=== PATIENT | female | born 1950 | race Caucasian/White ===

== ENCOUNTER 2016-11-21 13:59 | Emergency (ER) | payer OTHER ==
[~2016-11-21] VITALS: Ht 157.5 cm; Wt 82.6 kg
[~2016-11-21 13:59] MED LIST: /ADVA50050 IN; /MOXI40TA IV; /MOXI40TA OR; ACET65TA PO; ADV250INH INH; ALBU17IN INH; ALBU2TAB INH; ALBUTEROL INH; ALEVE PO; ATROVENT0.02% INH; BP MED PO; BUPR1TAB17 PO; CELE10TA PO; CHLORTHALIDONE; CLAR1TAB2 PO; COLA100C2 OR; COMBIVENT INHALER INH; COMBVENT INH; CYCL10TA PO; DICLOFENAC PR; DRIS50002 PO; FLAG250T OR; FOSA70TA PO; HYDR25TA6 PO; IPRA2IN INH; LISI20TA PO; MULTIVIT PO; NEBUMIS2 INH; PRED50TA PO; SPIR1CAP IN; TRAM50TA2 OR; TRAM50TA2 PO; VICO5TAB OR; [UNRECOGNIZED DRUG - OTHER]; [UNRECOGNIZED DRUG - REMARK] OR
[2016-11-21] MEDS ORDERED: METF500T PO (14:17)
[2016-11-21] MEDS ORDERED: LISI10TA4 PO (14:17)
[2016-11-21 18:03] LABS: ALBUMIN 2.9 GM/DL (3.2-5.2); ALBUMIN/GLOBULIN RATIO 0.52 (1.00-1.93); ALKALINE PHOSPHATASE 100 U/L (45-117); ALT/SGPT 19 U/L (12-78); ANION GAP 6 MEQ/L (8-16); AST/SGOT 8 U/L (15-37); BILIRUBIN,DIRECT < 0.1 MG/DL (0.0-0.2); BILIRUBIN,TOTAL 0.3 MG/DL (0.2-1.0); BLOOD UREA NITROGEN 16 MG/DL (7-18); CALCIUM LEVEL 8.3 MG/DL (8.8-10.2); CARBON DIOXIDE LEVEL 28 MEQ/L (21-32); CHLORIDE LEVEL 105 MEQ/L (98-107); CREATININE FOR GFR 0.88 MG/DL (0.55-1.02); GLOMERULAR FILTRATION RATE > 60.0 (>45); GLUCOSE, FASTING 107 MG/DL (80-110); POTASSIUM SERUM 4.2 MEQ/L (3.5-5.1); SODIUM LEVEL 139 MEQ/L (136-145); TOTAL PROTEIN 8.5 GM/DL (6.4-8.2)
[2016-11-21] MEDS ORDERED: LORazepam 2 MG/ML VIAL (J2060) IV STA (18:23)
[2016-11-21] MEDS ORDERED: CIPR500T89 PO (18:32)
[2016-11-21 18:39] LABS: MAGNESIUM LEVEL 2.5 MG/DL (1.8-2.4)
[2016-11-21 18:59] LABS: BASO # 0.1 K/mm3 (0.0-0.2); BASO % 0.3 % (0.0-1.0); EOS % 0.3 % (0.0-3.0); LARGE UNSTAINED CELL # 0.3 K/mm3 (0.0-0.4); LARGE UNSTAINED CELL % 1.9 % (0.0-4.0); LYMPH # 3.2 K/mm3 (1.5-4.5); LYMPH % 17.1 % (24.0-44.0); MEAN CORPUSCULAR HEMOGLOBIN 29.6 pg (27.0-33.0); MEAN CORPUSCULAR HGB CONC 33.3 g/dl (32.0-36.5); MEAN CORPUSCULAR VOLUME 88.9 fl (80.0-96.0); MONO # 0.9 K/mm3 (0.0-0.8); NEUTROPHILS # 12.8 K/mm3 (1.8-7.7); NEUTROPHILS % 75.4 % (36.0-66.0); PLATELET COUNT, AUTOMATED 512 k/mm3 (150-450); RED CELL DISTRIBUTION WIDTH 13.1 % (11.5-14.5); WHITE BLOOD COUNT 16.9 K/mm3 (4.0-10.0)
[2016-11-21 19:29] LABS: FOLATE 17.1 NG/ML (>5.4)
[2016-11-21 20:42] VITALS: BP 157/92
--- NOTE | 2016-11-22 03:10 | REPUSA ---
Clinical history: Pain, swelling. Findings: The right common femoral, superficial femoral, popliteal, and other deep venous structures compress normally and demonstrate normal color Doppler flow. Normal venous waveforms with augmentatio n are seen. Impression: No evidence of deep vein thrombosis in the right femoral popliteal venous system.
--- NOTE | 2016-11-22 03:10 | REPUSA ---
MRI of the lumbar spine without contrast Clinical statement: Pain down the right leg. Fall. Technique: Multiecho multiplanar MRI images of the lumbar spine were obtained without administration of contrast. No comparison is available. Findings: The lumbar vertebral bodies are in satisfactory position and alignment. No fractures or dis locations are demonstrated. Normal heterogeneous bone marrow signal is noted. No osseous tumors are s een. The intervertebral disc heights are well maintained and demonstrate normal signal. The filum ter minale and conus medullaris appear unremarkable. The spinal cord demonstrates normal signal and conto ur. The surrounding soft tissues are within normal limits. At L2/L3, there is a mild broad disc osteophyte complex and disc bulge. There is no evidence of disc herniation or central canal stenosis. There is moderate bilateral neural foraminal narrowing. At L3/L4, there is a mild disc osteophyte complex and disc bulge. Moderate facet arthropathy is seen bilaterally. This causes borderline central canal stenosis measuring 10 mm in AP diameter. There is moderate bilateral neural foraminal narrowing also appreciated. At L4/L5, there is a broad disc osteophyte complex and disc bulge. There is no evidence of central c anal stenosis or disc herniation. There is moderate bilateral neural foraminal narrowing. Impression: 1. Disc osteophyte complexes and disc bulges at L2/L3, L3/L4, and L4/L5. No evidence of disc herniati on. There is borderline central canal narrowing at L3/L4. 2. Moderate bilateral neural foraminal narrowing at L2/L3,L3/L4, and L4/L5. 3. No acute osseous abnormality appreciated.
== END 2016-11-21 21:00 | disposition home or self-care (01) ==
LOC: M ED 14:52
DX: N39.0 Urinary tract infection, site not specified (principal); M79.604 Pain in right leg; I10 Essential (primary) hypertension; J44.9 Chronic obstructive pulmonary disease, unspecified; G89.29 Other chronic pain; M54.5 Low back pain; Z79.899 Other long term (current) drug therapy; Z91.040 Latex allergy status; F17.210 Nicotine dependence, cigarettes, uncomplicated
CPT/HCPCS: 72148; 80048; 80076; 81001; 82607; 82746; 83735; 85025; 87088; 87186; 93971; 96374; 99283; J2060

== ENCOUNTER → 2016-12-15 | Outpatient (CLI) | payer OTHER ==
[~2016-12-15] MED LIST changes: +CIPR500T89 PO; +LISI10TA4 PO; +METF500T PO
--- NOTE | 2016-12-16 09:00 | REP ---
MR BRAIN WITHOUT CONTRAST: HISTORY: Headache. There are no areas of abnormal signal intensity in the brain. There is no intraparenchymal hemorrhage, infarct, mass or midline shift. The ventricular system and cortical sulci are dilated consistent with minimal volume loss. There is no extracerebral collection. Minimal mucosal thickening is present in the right mastoid air cells. The sinuses are clear. IMPRESSION: Minimal volume loss. Signed by Emre Jimenez MD 12/16/2016 09:18 A
== END ==
LOC: M RAD 15:59
PROVIDERS: ATTEND Family Medicine
DX: R51 Headache (principal)

== ENCOUNTER → 2018-11-13 | Outpatient (REF) | payer OTHER ==
[~2018-11-13] MED LIST changes: -/ADVA50050 IN; -/MOXI40TA IV; -/MOXI40TA OR; +ADVA1AER2 IN; +AVEL1TAB2 IV; +AVEL1TAB2 OR; -BUPR1TAB17 PO; +BUPR1TAB53 PO; +CIPR-249 PO; -CIPR500T89 PO; -DRIS50002 PO; +DRIS50003 PO; -METF500T PO; +METF500T13 PO
[2018-11-13 13:55] LABS: CREATININE FOR GFR 0.68 MG/DL (0.55-1.30); GLOMERULAR FILTRATION RATE > 60.0 (>45)
== END ==
LOC: M LABDRAW1 12:03
PROVIDERS: ATTEND Physical Medicine & Rehabilitation
DX: M48.061 Spinal stenosis, lumbar region without neurogenic claudication (principal)

== ENCOUNTER 2019-08-27 15:27 | Emergency (ER) | payer MEDICARE, MEDICAID ==
[~2019-08-27] VITALS: Ht 157.5 cm; Wt 92.2 kg
[~2019-08-27 15:27] MED LIST changes: -LISI20TA PO; +LISI20TA19 PO
--- NOTE | 2019-08-27 16:36 | REP ---
Right lower extremity deep vein duplex ultrasound: The deep veins demonstrate normal compression, normal Doppler color flow and normal Doppler waveforms with respiration and augmentation from the popliteal vein to the common femoral vein. There is a Valencia's cyst in the popliteal fossa measuring 5.2 x 3.8 x 1.2 cm. Impression: There is no right lower extremity deep vein thrombus. There is a popliteal fossa Valencia's cyst. Electronically Signed by Nazario Ordoñez MD 08/27/2019 04:28 P
[2019-08-27] MEDS ORDERED: ALPR1TAB3 (18:17)
[2019-08-27] MEDS ORDERED: GABA800T4 (18:17)
[2019-08-27] MEDS ORDERED: LIDOCAINE 4% CREAM 5GM (LMX4) TOP ONE (19:00)
[2019-08-27] MEDS ORDERED: IBUPROFEN 600 MG TAB PO ONE (19:00)
--- NOTE | 2019-08-27 20:18 | REP ---
RIGHT KNEE, FIVE VIEWS: Five views right knee performed. No acute fracture or dislocation is seen. There is mild diffuse joint space narrowing and spurring. IMPRESSION: Mild degenerative changes. No fracture or dislocation. Electronically Signed by Nazario Ramos MD 08/28/2019 05:04 P
[2019-08-27] MEDS ORDERED: NAPR-837 PO (20:22)
[2019-08-27] MEDS ORDERED: ANEC4CRE3 TOP (20:22)
[2019-08-27 20:26] VITALS: BP 108/67
== END 2019-08-27 20:33 | disposition home or self-care (01) ==
LOC: M ED 15:27
DX: M71.21 Synovial cyst of popliteal space [Baker], right knee (principal); M25.461 Effusion, right knee; R22.42 Localized swelling, mass and lump, left lower limb; I10 Essential (primary) hypertension; J44.9 Chronic obstructive pulmonary disease, unspecified; Z79.84 Long term (current) use of oral hypoglycemic drugs; Z79.899 Other long term (current) drug therapy; Z91.040 Latex allergy status

== ENCOUNTER → 2021-03-15 | Outpatient (CLI) | payer MEDICAID, MEDICARE ==
[~2021-03-15] MED LIST changes: +ALPR1TAB3; +ANEC4CRE3 TOP; +CYCL-707 PO; -CYCL10TA PO; +D31000TA2 PO; +FAMO20TA PO; +GABA800T4; +LISI10TA22 PO; -LISI10TA4 PO; -LISI20TA19 PO; +LISI20TA35 PO; +NAPR-837 PO; +VENTAER INH
--- NOTE | 2021-03-15 11:37 | PFTRPT ---
Site: [facility], [address] [place], [address] ID: [id number] Name: KADY FRIED Visit Date: 03/15/2021 Second ID: [id number] Referring Doctor: Loren Lucas M.D. Reviewing Doctor: Dontae Flores MD Product Development: Kaleb TEIXEIRA RRT Age: 70 : 1950 Sex: Female Race: Height: 62.00 Inches Weight: 211.00 Lbs BSA: 1.96 Order IDs: [id number] Requested Test(s): <RESP-PFT.PFT B/A> Diagnosis: J44.9 of albuterol for post bronchodilator. Review Status: Not Reviewed Pre-Bronch Post-Bronch Pred Actual %Pred Actual %Chng SPIROMETRY FVC (L) 2.79 2.35 84 2.44 3 FEV1 (L) 2.11 1.86 88 1.94 4 FEV1/FVC (%) 76 79 104 80 FEF 25% (L/sec) 4.55 4.61 101 5.36 16 FEF 50% (L/sec) 3.37 2.37 70 2.94 24 FEF 75% (L/sec) 1.00 0.52 51 0.74 43 FEF 25-75% (L/sec) 1.83 1.70 93 2.12 24 FEF Max (L/sec) 5.42 5.10 94 5.87 14 FIVC (L) 2.38 2.58 8 FIF 50% (L/sec) 3.50 1.62 46 2.16 33 FIF Max (L/sec) 1.98 2.86 44 MVV (L/min) 82 92 112 Expiratory Time (sec) 6.49 7.02 8 Back Extrap Vol (L) 0.09 0.09 Time To FEFmax (sec) 0.094 0.084 -10 LUNG VOLUMES SVC (L) 2.68 3.07 114 IC (L) 2.05 2.08 101 ERV (L) 0.63 0.99 157 TGV (L) 2.70 2.48 91 RV (Pleth) (L) 2.07 1.49 71 TLC (Pleth) (L) 4.75 4.56 96 RV/TLC (Pleth) (%) 43 33 75 DIFFUSION DLCOunc (ml/min/mmHg) 19.81 18.57 93 DL/VA (ml/min/mmHg/L) 4.17 4.63 111 VA (L) 4.75 4.01 84 BHT (sec) 10.64 IVC (L) 2.51 TLC (SB) (L) 4.16 AIRWAYS RESISTANCE Raw (cmH2O/L/s) 1.86 1.51 81 Gaw (L/s/cmH2O) 1.03 0.66 64 sRaw (cmH2O*s) 4.76 3.93 82 sGaw (1/cmH2O*s) 0.20 0.25 127
== END ==
LOC: M CARPUL 10:58
PROVIDERS: ATTEND Pediatrics
DX: J44.9 Chronic obstructive pulmonary disease, unspecified (principal)

== ENCOUNTER → 2021-03-22 | Outpatient (CLI) | payer MEDICARE | LOC: M LABSMTC 10:41 | PROVIDERS: ATTEND Anesthesiology | DX: Z01.812 Encounter for preprocedural laboratory examination (principal); Z20.822 Contact with and (suspected) exposure to COVID-19 ==

== ENCOUNTER → 2021-04-08 | Outpatient (CLI) | payer MEDICARE ==
--- NOTE | 2021-04-08 09:18 | REPMRS ---
Patient History Patient is postmenopausal. The patient states she has not had a clinical breast exam in over a year. 40 lb unintentional weight gain. Patient states no breast complaints today. Patient has signed MRS History Sheet. Digital Woman Screen Mammo: April 08, 2021 - Exam #: [id number] Bilateral CC and MLO view(s) were taken. Technologist: RT María Elena Prior study comparison: December 10, 2012, bilateral bilat screen digital mammo, performed at [facility] ([facility]). FINDINGS: There are scattered fibroglandular densities. Screening. Digital screening (2D) mammography was performed bilaterally in the CC and MLO projections. Additionally, breast tomosynthesis (3D mammography) was performed bilaterally in the CC and MLO projections. Todays exam was compared to the prior exam/exams. By history, the patient has no complaints of a palpable breast abnormality or other significant breast complaints. The breasts are unchanged in size and shape. There are no miroslava-soft tissue densities or spiculated masses. There is no internal architectural distortion. There are no suspicious miroslava-calcific clusters. Skin thickening or nipple retraction is not present. IMPRESSION: BI-RADS Category 2- Benign Findings. There is no evidence of malignant alteration of the breasts. Followup examination recommended in one year. The Volpara volumetric breast density category is B, there are scattered areas of fibroglandular densities. This mammogram was read with the assistance of [employer],an FDA approved computer aided detection system for mammography. The lifetime Tyrer-Cuzick score is 4.4 % Negative x-ray reports should not delay surgical consultation if a dominant or clinically suspicious mass is present. Not all breast cancers can be identified by mammography. Therefore, we recommend that you continue to perform regular breast self-examination and physical examination and then promptly contact your physician of any concerns or changes. Adenosis and dense breasts may obscure an underlying neoplasm. Assessment: BI-RADS/ACR category 2 mammogram. Benign Findings. Recommendation Routine screening mammogram of both breasts in 1 year. Electronically Signed By: Sonido Cooney DO 04/08/21 0929
--- NOTE | 2021-04-08 11:05 | DEXAMM ---
INDICATION: M81.0 OSTEOPOROSIS. COMPARISON: 12/10/2012. TECHNIQUE: Bone density was measured using dual-energy x-ray absorptiometry (DEXA). FINDINGS: AP SPINE L1-L4 BMD 1.155 g/cm2 Young Adult T-Score -0.2 Age Matched Z-Score 1.4. LT FEMUR, TOTAL BMD 0.742 g/cm2 Young Adult T-Score -2.1 Age Matched Z-Score -0.7. LT NECK BMD 0.632 g/cm2 Young Adult T-Score -2.9 Age Matched Z-Score -1.3. RT FEMUR, TOTAL BMD 0.740 g/cm2 Young Adult T-Score -2.1 Age Matched Z-Score -0.7. RT NECK BMD 0.793 g/cm2 Young Adult T-Score -1.8 Age Matched Z-Score -0.1. IMPRESSION: There is normal bone density of the spine. There is osteoporosis of the left hip. There is low bone density of the right hip. The density of the spine has increased 1.9% since the initial exam on 12/10/2012. The density of the left hip has decreased 2.4% since initial exam on 12/10/2012. The density of the right hip has decreased 9.8% since the initial exam on 12/10/2012. FOLLOW-UP: Recommendation for the next bone density exam: 2 years. <Electronically signed by Nazario Ramos > 04/08/21 [id number]
== END ==
LOC: M WHC 08:27
PROVIDERS: ATTEND Pediatrics
DX: Z12.31 Encounter for screening mammogram for malignant neoplasm of breast (principal); M81.0 Age-related osteoporosis without current pathological fracture; Z78.0 Asymptomatic menopausal state; R63.5 Abnormal weight gain; M85.88 Other specified disorders of bone density and structure, other site

== ENCOUNTER → 2021-09-11 | Outpatient (REF) ==
[2021-09-11 12:13] LABS: RSV AMPLIFICATION NEGATIVE (NEGATIVE)
== END ==
LOC: M LAB 09:54